=== PATIENT | male | born 1990 | race Caucasian/White ===

== ENCOUNTER 2020-12-24 14:08 | Emergency (ER) | payer SELFPAY ==
--- NOTE | 2020-12-24 14:32 | ED General ---
General Chief Complaint: Respiratory Problems Stated Complaint: SYNCOPAL EPISODE, COVID+ History of Present Illness Date Seen by Provider: Dec 24, 2020 Time Seen by Provider: 14:29 Initial Comments 30-year-old male presents from the outpatient clinic where he was seen for upper respiratory symptoms since yesterday. He was swabbed for Covid and after the swab he got lightheaded and dizzy asked to lay down and passed out briefly. Patient wheeled to the ER by clinic staff awake and alert and feeling better. Patient states that he has had previous episode of passing out. Denies any history of heart or lung problems, any history of anemia. He has had cough, sore throat and runny nose symptoms since yesterday and apparently was positive for Covid in the clinic prior to arrival today. Otherwise patient is on no prescription medications, denies drug or alcohol use. Allergies and Home Medications Allergies Coded Allergies: No Allergy Information Available (Unverified , 12/24/20) Patient Home Medication List Home Medication List Reviewed: Yes Review of Systems Review of Systems Constitutional: No fever, No malaise, No weakness EENTM: throat pain; No ear pain, No hoarseness Respiratory: cough; No short of breath Cardiovascular: No chest pain, No edema, No palpitations; syncope Gastrointestinal: No abdominal pain, No diarrhea, No nausea, No vomiting Musculoskeletal: No back pain, No joint pain Skin: No change in color, No rash Psychiatric/Neurological: See HPI; Denies Headache, Denies Numbness, Denies Paresthesia, Denies Weakness Past Bpbtlya-Ffuxia-Flrojc Hx Patient Social History Tobacco Use?: No Physical Exam Vital Signs Vital Signs - First Documented 12/24/20 14:10 Temp 37.0 Pulse 76 Resp 16 B/P (MAP) 117/56 (76) Pulse Ox 100 O2 Delivery Room Air Capillary Refill : Height, Weight, BMI Height: '" Weight: lbs. oz. 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 Decision time for Depature: 14:29 Referrals: NO,LOCAL PHYSICIAN (PCP/Family) Primary Care Physician Patient Instructions: Vasovagal Response (DC), COVID-19 ED Add. Discharge Instructions: Follow up with your PCP in 1 week if not improving, sooner if worse Take the following for the next couple weeks: Vitamin C 1,000mg twice daily Vitamin D 10,000iu daily Zinc 100mg daily Melatonin 10mg at bedtime Aspirin 325mg daily for 1 week All discharge instructions reviewed with patient and/or family. Voiced understanding. ASHLEY HOLCOMB DO Dec 24, 2020 14:32
[2020-12-24 14:40] VITALS: BP 117/56
== END 2020-12-24 14:38 | disposition home or self-care (01) ==
LOC: ER FS 14:12
DX: R55 Syncope and collapse (principal); U07.1 COVID-19
CPT/HCPCS: 99283